=== PATIENT | female | born 1985 | race Hispanic/Latino ===

== ENCOUNTER 2018-04-12 20:55 | Emergency (ER) | payer OTHER ==
[2018-04-12 21:18] VITALS: TEMP 100.2
[2018-04-12] MEDS: Lactated Ringer's 1,000 ML IV STA (22:33)
--- NOTE | 2018-04-12 22:33 | ED PDOC ---
HPI: Abdomen Time Seen by Provider: 04/12/18 21:41 Chief Complaint (Nursing): GI Problem Chief Complaint (Provider): GI Problem History Per: Patient History/Exam Limitations: no limitations Onset/Duration Of Symptoms: Days (x1) Current Symptoms Are (Timing): Still Present Additional Complaint(s): 32 y/o female with no significant PMHx presents to the ED for evaluation of vomiting, diarrhea and abdominal cramping, onset one day ago. Patient states vomiting is intractable, non-bloody and non-bilious and diarrhea is watery and non-bloody. Patient reports a few days ago, her also had episodes of vomiting that resolved spontaneously. Patient additionally reports of a fever with a temperature of 102 at home. Of note, patient states she is currently her 2 month old . Otherwise, patient denies recent travel and antibiotic use. PMD: No provider [employer]: Toby Cr MD Past Medical History Reviewed: Historical Data, Nursing Documentation, Vital Signs Vital Signs: Last Vital Signs Temp 100.2 F H 04/12/18 21:15 Pulse 105 H 04/12/18 21:15 Resp 18 04/12/18 21:15 BP 145/93 H 04/12/18 21:15 Pulse Ox 98 04/12/18 21:15 - Medical History PMH: No Chronic Diseases - Surgical History Surgical History: No Surg Hx - Family History Family History: States: Unknown Family Hx - Home Medications Home Medications: Ambulatory Orders Medication Instructions Recorded Famotidine [Pepcid] 40 mg PO DAILY PRN #14 tab 04/13/18 Ondansetron ODT [Zofran ODT] 1 odt PO Q6 PRN #20 odt 04/13/18 - Allergies Allergies/Adverse Reactions: Allergies Allergy/AdvReac Type Severity Reaction Status Date / Time No Known Allergies Allergy Verified 04/12/18 21:41 Review of Systems ROS Statement: Except As Marked, All Systems Reviewed And Found Negative ( PER HPI) Gastrointestinal: Positive for: Vomiting, Diarrhea Physical Exam - Reviewed Nursing Documentation Reviewed: Yes Vital Signs Reviewed: Yes - Physical Exam Appears: Positive for: Non-toxic, No Acute Distress Head Exam: Positive for: ATRAUMATIC, NORMOCEPHALIC Skin: Positive for: Warm, Dry Eye Exam: Positive for: EOMI, PERRL ENT: Negative for: Pharyngeal Erythema, Tonsillar Exudate Neck: Positive for: Painless ROM, Supple Cardiovascular/Chest: Positive for: Tachycardia (with regular rhythm). Negative for: Murmur Respiratory: Positive for: Normal Breath Sounds. Negative for: Respiratory D istress Gastrointestinal/Abdominal: Positive for: Normal Exam, Soft. Negative for: Tenderness, Mass, Guarding, Rebound Back: Positive for: Normal Inspection. Negative for: Decreased ROM Extremity: Positive for: Normal ROM. Negative for: Deformity Lymphatic: Negative for: Adenopathy Neurologic/Psych: Positive for: Alert. Negative for: Motor/Sensory Deficits - Laboratory Results Result Diagrams: 04/12/18 22:15 04/12/18 22:15 - ECG O2 Sat by Pulse Oximetry: 98 (RA) Pulse Ox Interpretation: Normal Medical Decision Making Medical Decision Making: Time: 2210 Impression: Vomiting and Diarrhea Differentials include but not limited to gastroenteritis, viral syndrome, dehydration and electrolyte abnormality. Plan: -- CMP -- Magnesium -- Phosphorus -- ED Urine -- ED Urine Dipstick -- CBC with Differentials -- Dextrose 5%/Lactated Ringer's IV 100 mls/hr -- Lactated Ringer's IV 1000 mls/hr -- Pepcid 20 mg IVP -- Zofran Inj 8 mg IV -- IV Insertion 0000 Patient care endorsed to Dr. Diggs, pending PO challenge. Scribe Attestation: Documented by Arjun Monk, acting as a scribe for Lary Cunningham MD. Provider Scribe Attestation: All medical record entries made by the Scribe were at my direction and personally dictated by me. I have reviewed the chart and agree that the record accurately reflects my personal performance of the history, physical exam, medical decision making, and the department course for this patient. I have also personally directed, reviewed, and agree with the discharge instructions and disposition. Disposition - Clinical Impression Clinical Impression: Vomiting and diarrhea - Disposition Disposition: Transfer of Care Disposition Time: 00:00 Condition: IMPROVED Additional Instructions: DRINK PLENTY OF HYDRATING FLUIDS SLOWLY THROUGH THE NEXT DAY START BLAND FOOD TOMORROW EVENING TAKE MEDICATIONS PRESCRIBED, AND TYLENOL OR MOTRIN NEEDED FOR FEVER. Prescriptions: Famotidine [Pepcid] 40 mg PO DAILY PRN #14 tab PRN Reason: reflux Ondansetron ODT [Zofran ODT] 1 odt PO Q6 PRN #20 odt PRN Reason: Nausea/Vomiting Instructions: Viral Gastroenteritis, Adult (DC) Forms: [facility] ED School/Work Excuse
[2018-04-12 23:11] LABS: BASO % 0.2 % (0.0-2.0); HEMOGLOBIN 14.7 g/dL (12.0-16.0); LYMPH # 0.6 K/uL (1.0-4.3); MEAN CELL VOLUME 94.5 fl (81.0-99.0); MEAN CORPUSCULAR HEMOGLOBIN 31.4 pg (27.0-31.0); MEAN CORPUSCULAR HGB CONC 33.3 g/dL (33.0-37.0); MEAN PLATELET VOLUME 8.4 fl (7.2-11.7); MONO # 0.7 K/uL (0.0-0.8); MONO % 8.3 % (0.0-10.0); NEUT # 7.6 K/uL (1.8-7.0); NEUT % 84.5 % (50.0-75.0); PLATELET COUNT 255 K/uL (130-400); RBC 4.67 Mil/uL (3.80-5.20); RED CELL DISTRIBUTION WIDTH 13.7 % (11.5-14.5)
[2018-04-12 23:21] LABS: ALB/GLOB RATIO 1.2 (1.0-2.1); ALBUMIN 4.6 g/dL (3.5-5.0); ALT/SGPT 54 U/L (9-52); AST/SGOT 40 U/L (14-36); BLOOD UREA NITROGEN 13 mg/dl (7-17); CALCIUM 9.6 mg/dL (8.4-10.2); GFR NON-AFRICAN AMERICAN > 60
[2018-04-13 00:17] LABS: LYMPHOCYTE 6 % (20-50); MONOCYTE 8 % (0-10); NEUTROPHIL 86 % (42-75); TOTAL CELLS COUNTED 100
[2018-04-13 00:18] LABS: PLATELET ESTIMATE NORMAL (NORMAL)
[2018-04-13 00:19] LABS: ANISOCYTOSIS SLIGHT; LARGE PLATELETS PRESENT; STOMATOCYTES SLIGHT
--- NOTE | 2018-04-13 00:47 | ED PDOC ---
- Laboratory Results Result Diagrams: 04/12/18 22:15 04/12/18 22:15 - ECG O2 Sat by Pulse Oximetry: 98 (RA) Pulse Ox Interpretation: Normal Medical Decision Making Medical Decision Makin Patient care was endorsed to me by Dr. Cunningham, pending PO challenge. 0030 pt tolerated po in the ER. pt felt better. stable for dc ------- Scribe Attestation: Documented by Nickolas Hood, acting as a scribe for Cayden Diggs MD Provider Scribe Attestation: All medical record entries made by the Scribe were at my direction and personally dictated by me. I have reviewed the chart and agree that the record accurately reflects my personal performance of the history, physical exam, medical decision making, and the department course for this patient. I have also personally directed, reviewed, and agree with the discharge instructions and disposition. Disposition - Clinical Impression Clinical Impression: Vomiting and diarrhea - POA Present On Arrival: None - Disposition Disposition: Routine/Home Disposition Time: 01:00 Condition: IMPROVED Additional Instructions: DRINK PLENTY OF HYDRATING FLUIDS SLOWLY THROUGH THE NEXT DAY START BLAND FOOD TOMORROW EVENING TAKE MEDICATIONS PRESCRIBED, AND TYLENOL OR MOTRIN NEEDED FOR FEVER. Prescriptions: Famotidine [Pepcid] 40 mg PO DAILY PRN #14 tab PRN Reason: reflux Ondansetron ODT [Zofran ODT] 1 odt PO Q6 PRN #20 odt PRN Reason: Nausea/Vomiting Instructions: Viral Gastroenteritis, Adult (DC) Forms: [facility] ED School/Work Excuse
[2018-04-13] MEDS: Dextrose 5%/Lactated Ringer's 1,000 ML IV SCH (01:25)
[2018-04-13 01:27] VITALS: BP 130/81; PULSE 84; RESP 16
[2018-04-16 21:50] VITALS: O2SAT 98
== END 2018-04-13 01:26 | disposition home or self-care (01) ==
LOC: H.ER 20:55
DX: R11.10 Vomiting, unspecified (principal); R19.7 Diarrhea, unspecified
CPT/HCPCS: 80053; 81025; 83735; 84100; 85025; 96361; 96374; 96375; 99283; J2405; J7120